=== PATIENT | male | born 1980 | race Caucasian/White ===

== ENCOUNTER 2016-08-18 13:34 | Outpatient (CLI) | payer OTHER ==
--- NOTE | 2016-08-18 16:28 | DIAGNOSTIC IMAGING REPORT ---
PROCEDURE: US ART LOWER EXT WITH BERNICE-B/L INDICATION: Nonhealing bilateral leg wounds (left greater than right). Diabetes. Smoking history. TECHNIQUE: Preexercise ABIs were performed. The patient was exercised (toe-ups) and postexercise ABIs were repeated followed by color Doppler duplex imaging of the lower extremities. COMPARISON: None. FINDINGS: RIGHT LOWER EXTREMITY: ABIs: Pre exercise ABIs are normal (posterior tibial 1.1, dorsalis pedis 1.0), and are unchanged following exercise (posterior tibial 1.1, dorsalis pedis 1.0) VESSELS: Minimal atheromatous plaque. RIGHT LOWER EXTREMITY PEAK SYSTOLIC VELOCITIES: External iliac: Triphasic 129 cm/second. Common femoral artery: Triphasic 75 cm/second. Profunda femoral artery: Triphasic 51 cm/second. Proximal superficial femoral artery: Triphasic 94 cm/second. Mid superficial femoral artery: Triphasic 67 cm/second. Distal superficial femoral artery: Triphasic six cm/second. Popliteal artery: Triphasic 44 cm/second. Proximal posterior tibial artery: Triphasic 37 cm/second. Proximal anterior tibial artery: Triphasic 35 cm/second. Peroneal artery: N/A cm/second. Distal posterior tibial artery: Triphasic 53 cm/second. Dorsalis pedis artery: Triphasic 80 cm/second. LEFT LOWER EXTREMITY: ABIs: Pre exercise ABIs are normal (posterior tibial 1.0, dorsalis pedis 1.0), and are minimally changed following exercise (posterior tibial 1.0, dorsalis pedis 1.1). VESSELS: Minimal atheromatous plaque LEFT LOWER EXTREMITY PEAK SYSTOLIC VELOCITIES: External iliac: Triphasic 117 cm/second. Common femoral artery: Triphasic 81 cm/second. Profunda femoral artery: Triphasic 44 cm/second. Proximal superficial femoral artery: Triphasic 113 cm/second. Mid superficial femoral artery: Triphasic 102 cm/second. Distal superficial femoral artery: Triphasic 78 cm/second. Popliteal artery: Triphasic 55 cm/second. Proximal posterior tibial artery: Triphasic 59 cm/second. Proximal anterior tibial artery: Triphasic 83 cm/second. Peroneal artery: N/A cm/second. Distal posterior tibial artery: Triphasic 73 cm/second. Dorsalis pedis artery: Triphasic 71 cm/second. IMPRESSION: 1. Minimal atheromatous plaque of the bilateral lower extremities. 2. No evidence of pre or postexercise arterial insufficiency.
--- NOTE | 2016-08-18 16:34 | DIAGNOSTIC IMAGING REPORT ---
PROCEDURE: US VENOUS - BILATERAL EXT INDICATION: NON HEALING WOUNDS BILATERAL TECHNIQUE: Duplex sonography of the deep and superficial venous system in both lower extremities was performed. Compression and augmentation techniques were used. The patient was scanned in the upright position. Surveillance of the venous system during Valsalva maneuver when appropriate was performed. FINDINGS: Each interrogated segment of deep vein from the common femoral vein into the calf veins demonstrates normal compressibility, augmentation and/or color Doppler flow without filling defect. No evidence of significant soft-tissue edema, soft-tissue mass or cyst. No thrombus in either greater saphenous or short saphenous vein. There is no venous reflux in the right greater saphenous vein. The reflux duration is greater than 0.5 seconds. The vein measures 5.2 mm in maximal diameter in the proximal segment. There is no venous reflux in the left greater saphenous vein. The reflux duration is greater than 0.5 seconds. The vein measures 7.4 mm in maximal diameter in the proximal segment. There is no venous reflux in the right or left deep system. All veins competent. No venous varicosities are seen. IMPRESSION: 1. No venous insufficiency bilaterally. 2. No deep venous thrombosis in either lower extremity.
== END 2016-08-18 23:00 ==
LOC: US SRH 13:34
DX: E11.622 Type 2 diabetes mellitus with other skin ulcer (principal); L97.929 Non-pressure chronic ulcer of unspecified part of left lower leg with unspecified severity; L97.919 Non-pressure chronic ulcer of unspecified part of right lower leg with unspecified severity